=== PATIENT | male | born 2005 | race Caucasian/White ===

== ENCOUNTER → 2024-02-08 11:30 | Outpatient (REF) | payer OTHER, SELFPAY | LOC: RAD 11:30 | PROVIDERS: ATTENDING PHYSICIAN Pediatrics; FAMILY PHYSICIAN Pediatrics | DX: K59.00 Constipation, unspecified (principal) | CPT/HCPCS: 74018 ==

== ENCOUNTER → 2024-08-29 15:48 | Outpatient (REF) | payer OTHER, SELFPAY | LOC: RAD 15:48 | PROVIDERS: FAMILY PHYSICIAN Pediatrics; REFERRING PHYSICIAN Pediatrics | DX: R10.9 Unspecified abdominal pain (principal) | CPT/HCPCS: 74018 ==

== ENCOUNTER → 2024-10-18 09:33 | Outpatient (REF) | payer OTHER, SELFPAY | LOC: HWRAD 09:33 | PROVIDERS: ATTENDING PHYSICIAN Student in an Organized Health Care Education/Training Program; REFERRING PHYSICIAN Pediatrics | DX: R10.9 Unspecified abdominal pain (principal) | CPT/HCPCS: 76700 ==